=== PATIENT | female | born 1980 | race African-American/Black ===

== ENCOUNTER 2020-09-16 07:54 | Emergency (ER) | payer OTHER ==
[2020-09-16 08:09] VITALS: BMI 36.5
[2020-09-16] MEDS ORDERED: MECLIZINE HCL 25 MG TABLET (FP) PO ONE ×2 (08:32→09:42)
[2020-09-16] MEDS ORDERED: MECLIZINE HCL 25 MG TABLET (FP) ONE (08:42)
[2020-09-16 09:53] LABS: BASO % 0.5 % (0-2.0); EOS % 0.6 % (0-4.5); HEMATOCRIT 36.2 % (32.4-45.2); MCH 27.3 pg (25.7-33.7); MCHC 33.1 g/dl (32.0-36.0); MEAN CELL VOLUME 82.3 fl (80-96); MEAN PLT VOLUME 7.9 fl (7.5-11.1); MONO % 6.3 % (3.8-10.2); NEUT % 66.6 % (42.8-82.8); PLATELET COUNT 388 10^3/uL (134-434); RDW 16.2 % (11.6-15.6); WHITE BLOOD COUNT 6.4 K/mm3 (4.0-10.0)
[2020-09-16] MEDS ORDERED: ACETAMINOPHEN 325 MG TABLET (FP) PO ONE (09:56)
[2020-09-16 10:07] LABS: CHLORIDE 106 mmol/L (98-107); SODIUM 139 mmol/L (136-145)
[2020-09-16 10:10] LABS: ALBUMIN 4.3 g/dl (3.4-5.0); ANION GAP 9 MMOL/L (8-16); BLOOD UREA NITROGEN 8.7 mg/dL (7-18); CO2 24 mmol/L (21-32); GLUCOSE,RANDOM 82 mg/dL (74-106)
[2020-09-16 10:13] LABS: SGOT/AST 25 U/L (15-37); SGPT/ALT 27 U/L (13-61)
[2020-09-16 10:14] LABS: BILIRUBIN,TOTAL 0.2 mg/dL (0.2-1); TOT PROT 7.9 g/dl (6.4-8.2)
[2020-09-16 10:16] LABS: ALK PHOS 76 U/L (45-117)
[2020-09-16 10:20] LABS: CREATININE 0.7 mg/dL (0.55-1.3)
[2020-09-16] MEDS ORDERED: ACETAMINOPHEN 325 MG TABLET (FP) ONE (10:35)
[2020-09-16 10:57] VITALS: BP 138/86; PULSE 91; TEMP 98.2
== END 2020-09-16 10:49 | disposition home or self-care (01) ==
LOC: JER 07:54
DX: R42 Dizziness and giddiness (principal)
CPT/HCPCS: 36415; 80053; 84484; 84703; 85025; 93005; 93010; 99284-25